=== PATIENT | male | born 1955 | race Caucasian/White ===

== ENCOUNTER 2021-11-17 20:10 | Observation (INO) | payer MEDICARE ==
[~2021-11-17] VITALS: Ht 195.6 cm; Wt 178.5 kg
[~2021-11-17 20:10] MED LIST: ALLO100T PO; ASPI-556 PO; MAGN500C4 PO; MINO100C6 PO; ZOLP10TA6 PO
[2021-11-17] MEDS ORDERED: 0.9%NACL 1000ML 1,000 ML IV ONE (20:30)
[2021-11-17 20:49] LABS: BASOPHILS % (AUTO) 0.3 % (0.0-5.0); EOSINOPHILS % (AUTO) 0.3 % (0.0-8.0); HEMATOCRIT 39.8 % (42-54); LYMPHOCYTES % (AUTO) 23.8 % (21.0-51.0); MEAN CORPUSCULAR HEMOGLOBIN 32.2 pg (27.0-33.0); MEAN CORPUSCULAR HGB CONC 34.7 g/dL (32.0-36.0); MONOCYTES % (AUTO) 7.1 % (3.0-13.0); PLATELET COUNT (AUTO) 229 K/uL (130-400); RED BLOOD CELL COUNT(AUTO) 4.28 MIL/uL (4.50-6.20); WHITE BLOOD COUNT (AUTO) 9.3 K/uL (4.8-10.8)
[2021-11-17 21:00] LABS: CREATININE 0.9 mg/dL (0.5-1.5); INR 0.94 (0.85-1.15); POTASSIUM 3.8 mmol/L (3.5-5.1); PROTHROMBIN TIME 10.3 SEC (9.6-11.6)
[2021-11-17] MEDS ORDERED: MECLIZINE HCL 25 MG TABLET PO ONE (21:00)
[2021-11-17 21:01] LABS: PARTIAL THROMBOPLASTIN TIME 27.7 SEC (26.3-35.5)
[2021-11-17 21:07] LABS: ALBUMIN 3.8 g/dL (3.5-5.0); TOTAL PROTEIN, SERUM 8.1 g/dL (6.0-8.3)
[2021-11-17 22:42] LABS: APPEARANCE,URINE CLOUDY (CLEAR); BILIRUBIN,URINE NEGATIVE (NEGATIVE); COLOR,URINE YELLOW (YELLOW); GLUCOSE, URINE (UA) NEGATIVE (NEGATIVE); KETONES,URINE 10 mg/dL (NEGATIVE); LEUKOCYTE ESTERASE ,URINE NEGATIVE Leu/uL (NEGATIVE); NITRATE,URINE NEGATIVE (NEGATIVE); OCCULT BLOOD,URINE NEGATIVE (NEGATIVE); PROTEIN,URINE 10 mg/dL (NEGATIVE); UROBILINOGEN,URINE 0.2 mg/dL (0.2-1.0)
[2021-11-17 22:58] LABS: MUCUS,URINE RARE LPF (None Seen); WBC,URINE 0-1 /HPF (0-1)
[2021-11-17] MEDS ORDERED: ONDANSETRON 4MG INJ IV PRN (23:00)
[2021-11-17] MEDS ORDERED: MORPHINE 4 MG SYG IV PRN (23:00)
[2021-11-17] MEDS ORDERED: MORPHINE 2 MG SYG IV PRN (23:00)
[2021-11-17] MEDS ORDERED: ACETAMINOPHEN 325 MG TAB PO PRN (23:00)
[2021-11-17] MEDS ORDERED: 0.9%NACL 1000ML 1,000 ML IV SCH (23:00)
[2021-11-18] VITALS (9 sets, daily range): BP systolic 129–159; BP diastolic 65–85
[2021-11-18 06:19] LABS: BASOPHILS % (AUTO) 0.4 % (0.0-5.0); EOSINOPHILS % (AUTO) 0.8 % (0.0-8.0); HEMATOCRIT 37.4 % (42-54); LYMPHOCYTES % (AUTO) 28.9 % (21.0-51.0); MEAN CORPUSCULAR HEMOGLOBIN 32.2 pg (27.0-33.0); MEAN CORPUSCULAR VOLUME 91.9 fL (79-99); MONOCYTES % (AUTO) 7.4 % (3.0-13.0); PLATELET COUNT (AUTO) 212 K/uL (130-400); RED BLOOD CELL COUNT(AUTO) 4.07 MIL/uL (4.50-6.20); RED CELL DISTRIBUTION WIDTH 12.2 % (11.0-15.5); WHITE BLOOD COUNT (AUTO) 10.5 K/uL (4.8-10.8)
[2021-11-18 06:34] LABS: CREATININE 0.8 mg/dL (0.5-1.5); PHOSPHORUS 4.1 mg/dL (2.5-4.9); POTASSIUM 3.5 mmol/L (3.5-5.1)
[2021-11-18] MEDS ORDERED: POTASSIUM CHLORIDE 10MEQ SR TAB PO SCH (08:00)
[2021-11-18] MEDS ORDERED: FAMOTIDINE 20MG TAB PO SCH (09:00)
[2021-11-18] MEDS ORDERED: ENOXAPARIN SODIUM 40 MG/0.4 ML SYRINGE SQ SCH (09:00)
[2021-11-18] MEDS ORDERED: LOSARTAN 100 MG TABLET PO SCH (11:00)
[2021-11-18] MEDS ORDERED: MECL-262 PO (12:44)
== END 2021-11-18 15:00 | disposition home or self-care (01) ==
LOC: EDH 20:15 → EDHIP 23:00 → 4AH 11-18 00:58
PROVIDERS: ADMIT Internal Medicine; ATTEND Internal Medicine
DX: R42 Dizziness and giddiness (principal); Z20.822 Contact with and (suspected) exposure to COVID-19; E11.9 Type 2 diabetes mellitus without complications; I10 Essential (primary) hypertension; G47.33 Obstructive sleep apnea (adult) (pediatric); E86.0 Dehydration; Z85.46 Personal history of malignant neoplasm of prostate; Z51.5 Encounter for palliative care; Z79.899 Other long term (current) drug therapy
CPT/HCPCS: 96360; 96361 ×2; 99285; 84484 ×3; 80053; 83880; 85025 ×2; 85378; 85610; 85730; 87804 ×2; 81001; 36415 ×2; 87635; 71045; 70450; 93005 ×2; 94660 ×2; 96372; 83036; 83735; 84100; 80048; 82948; 86140; 97161; 84145; G0378 ×16; C9803; J1650

== ENCOUNTER 2023-04-27 20:44 | Emergency (ER) | payer MEDICARE ==
[~2023-04-27] VITALS: Ht 195.6 cm; Wt 174.6 kg
[~2023-04-27 20:44] MED LIST changes: +MECL-262 PO; -MINO100C6 PO
[2023-04-27] MEDS: MORPHINE 2 MG SYG IM ONE (21:55)
[2023-04-27] MEDS ORDERED: CYCL-309 PO (23:03)
[2023-04-27] MEDS ORDERED: GABA300C PO (23:03)
[2023-04-27] MEDS ORDERED: IBUP-1493 PO (23:03)
[2023-04-27 23:26] VITALS: BP 134/66; PULSE 68; RESP 18; O2SAT 97
== END 2023-04-27 23:27 | disposition home or self-care (01) ==
LOC: EDH 20:44
DX: M54.50 Low back pain, unspecified (principal); E11.9 Type 2 diabetes mellitus without complications; I10 Essential (primary) hypertension; Z79.82 Long term (current) use of aspirin; Z88.0 Allergy status to penicillin
CPT/HCPCS: 99285; 70450; 72125; 72131; 72128; 96372; J2270

== ENCOUNTER → 2023-07-09 | Outpatient (CLI) | payer MEDICARE ==
[~2023-07-09] MED LIST changes: +CYCL-309 PO; +GABA300C PO; +IBUP-1493 PO
== END | disposition home or self-care (01) ==
LOC: SHCH 09:56
PROVIDERS: ATTEND Internal Medicine Cardiovascular Disease
DX: I73.9 Peripheral vascular disease, unspecified (principal); I87.2 Venous insufficiency (chronic) (peripheral)
CPT/HCPCS: 93925; 93970